=== PATIENT | female | born 2000 | race Caucasian/White ===

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

== ENCOUNTER 2022-07-28 21:15 | Emergency (ER) | payer MEDICAID ==
[~2022-07-28] VITALS: Ht 165.1 cm; Wt 56.8 kg
[2022-07-28 23:41] LABS: HEMATOCRIT. 43.4 % (36.0-48.0); HEMOGLOBIN. 14.5 g/dL (12.0-16.0); MEAN CORPUSCULAR HEMOGLOBIN 28.6 pg (28.0-32.0); MEAN CORPUSCULAR VOLUME 85.8 fL (81.0-99.0); PLATELET 231 x1000/uL (130-400); RED BLOOD CELL COUNT 5.06 mill/uL (4.2-5.4)
[2022-07-29 00:03] LABS: HCG SCREEN NEGATIVE
[2022-07-29 00:07] LABS: CHLORIDE 104 mEq/L (98-107)
[2022-07-29 00:25] LABS: PLATELET ESTIMATE NORMAL
[2022-07-29 02:31] LABS: CLARITY URINE CLEAR (CLEAR); COLOR URINE YELLOW (YELLOW); KETONES URINE 1+ (NEGATIVE); LEUKOCYTE ESTERASE URINE 2+ (NEGATIVE); NITRITE URINE NEGATIVE (NEGATIVE); OCCULT BLOOD URINE NEGATIVE (NEGATIVE); PROTEIN URINE NEGATIVE (NEGATIVE); UROBILINOGEN URINE 0.2 E.U./dL (0.2-1.0)
[2022-07-29] MEDS ORDERED: CEPH500T MT (02:37)
[2022-07-29] MEDS ORDERED: IBUP-2029 MT (02:37)
[2022-07-29] MEDS ORDERED: IBUPROFEN 600MG TABLET PO ONE (02:45)
[2022-07-29 02:48] VITALS: BP 116/79
== END 2022-07-29 02:59 | disposition home or self-care (01) ==
LOC: ER 21:43
DX: R10.30 Lower abdominal pain, unspecified (principal); R11.0 Nausea; F12.10 Cannabis abuse, uncomplicated
CPT/HCPCS: 36415; 80053; 81003; 81025; 84703; 85025; 99283